=== PATIENT | female | born 1995 | race Caucasian/White ===

== ENCOUNTER 2018-08-07 17:32 | Emergency (ER) | payer MEDICAID ==
[~2018-08-07] VITALS: Ht 157.5 cm; Wt 53.6 kg
[~2018-08-07 17:32] MED LIST: ALBU8HFA PO; BECL7.3A INH; DIPH-423 PO; ONDA4TAB12 PO; PHE12.5T PO
[2018-08-07 17:52] VITALS: BP 107/48
[2018-08-07] MEDS ORDERED: DOXY100C43 PO (19:00)
[2018-08-07] MEDS ORDERED: CefTRIAXone 250MG inj IM ONE (19:00)
[2018-08-07 19:09] LABS: COLOR,URINE YELLOW (Yellow); GLUCOSE, URINE NEGATIVE (Neg); KETONES,URINE NEGATIVE (Neg); LEUKOCYTE ESTERASE ,URINE NEGATIVE (Neg); NITRITES, URINE NEGATIVE (Neg); OCCULT BLOOD,URINE NEGATIVE (Neg); PROTEIN,URINE NEGATIVE (Neg); UROBILINOGEN,URINE 0.2 E.U/dL (0.2-1.0)
[2018-08-07 19:10] LABS: URINE HCG NEGATIVE (NEG)
[2018-08-07 19:20] LABS: UA COLLECTION TYPE CLN CATCH MIDSTREAM
[2018-08-07 19:21] LABS: CLARITY,URINE SLIGHTLY CLOUDY (Clear)
[2018-08-07 19:24] LABS: BACTERIA,URINE FEW /HPF (Neg); MUCUS STRANDS NONE SEEN /LPF (Neg); RBC,URINE NONE SEEN /HPF (0-2); SQUAMOUS EPITHELIAL CELL,UR MANY /LPF (FEW); WBC,URINE 0-4 /HPF (0-4)
[2018-08-07] MEDS: CefTRIAXone 250MG IM Kit w/LIDOcaine IM ONE (19:32)
== END 2018-08-07 19:40 | disposition home or self-care (01) ==
LOC: ER 17:32
DX: J06.9 Acute upper respiratory infection, unspecified (principal); N89.8 Other specified noninflammatory disorders of vagina; Z20.2 Contact with and (suspected) exposure to infections with a predominantly sexual mode of transmission; J45.909 Unspecified asthma, uncomplicated; Z79.899 Other long term (current) drug therapy; F12.90 Cannabis use, unspecified, uncomplicated
CPT/HCPCS: 36415; 81001; 81025; 87491; 87591; 96372; 99283; J0696

== ENCOUNTER 2018-10-10 17:07 | Emergency (ER) | payer MEDICAID ==
[~2018-10-10] VITALS: Ht 157.5 cm; Wt 52.3 kg
[~2018-10-10 17:07] MED LIST changes: -PHE12.5T PO; +PROM12.512 PO
[2018-10-10 17:33] VITALS: BP 109/61
[2018-10-10 19:00] LABS: URINE HCG NEGATIVE (NEG)
[2018-10-10 19:01] LABS: CLARITY,URINE CLOUDY (Clear); COLOR,URINE YELLOW (Yellow); GLUCOSE, URINE NEGATIVE (Neg); KETONES,URINE NEGATIVE (Neg); LEUKOCYTE ESTERASE ,URINE SMALL (Neg); NITRITES, URINE NEGATIVE (Neg); OCCULT BLOOD,URINE LARGE (Neg); PROTEIN,URINE 100 mg/dl (Neg); UROBILINOGEN,URINE 0.2 E.U/dL (0.2-1.0)
[2018-10-10 19:02] LABS: UA COLLECTION TYPE CLN CATCH MIDSTREAM
[2018-10-10 19:26] LABS: BACTERIA,URINE 1+ /HPF (Neg); MUCUS STRANDS FEW /LPF (Neg); RBC,URINE 50-100 /HPF (0-2); SQUAMOUS EPITHELIAL CELL,UR FEW /LPF (FEW); WBC,URINE TNTC /HPF (0-4)
[2018-10-10] MEDS ORDERED: NITR100C6 PO (20:03)
== END 2018-10-10 20:12 | disposition home or self-care (01) ==
LOC: ER 17:08
DX: N39.0 Urinary tract infection, site not specified (principal); R31.9 Hematuria, unspecified; J45.909 Unspecified asthma, uncomplicated; F12.90 Cannabis use, unspecified, uncomplicated; F19.90 Other psychoactive substance use, unspecified, uncomplicated; Z98.890 Other specified postprocedural states; Z91.018 Allergy to other foods; Z79.899 Other long term (current) drug therapy
CPT/HCPCS: 81001; 81025; 87077; 87088; 87186; 99283

== ENCOUNTER 2020-11-03 13:30 | Emergency (ER) | payer MEDICAID ==
[~2020-11-03] VITALS: Ht 157.5 cm; Wt 58.2 kg
[~2020-11-03 13:30] MED LIST changes: +NITR100C6 PO
[2020-11-03 13:40] VITALS: BP 105/52
[2020-11-03 14:05] LABS: BASOPHILS # (AUTO) 0.1 X10'3 (0-0.2); BASOPHILS % (AUTO) 0.4 % (0-1); EOSINOPHILS % (AUTO) 0.2 % (0-6); HEMATOCRIT 34.1 % (35.0-45.0); HEMOGLOBIN 11.4 g/dl (12.0-16.0); LYMPHOCYTES # (AUTO) 1.3 X10'3 (1.1-4.8); LYMPHOCYTES % (AUTO) 8.8 % (21-51); MEAN CORPUSCULAR HEMOGLOBIN 28.4 PG (27.0-31.0); MEAN CORPUSCULAR HGB CONC 33.6 g/dL (33.0-36.5); MEAN CORPUSCULAR VOLUME 84.6 FL (78-98); MEAN PLATELET VOLUME 8.1 FL (7.4-10.4); MONOCYTES # (AUTO) 1.5 X10'3 (0-0.9); MONOCYTES % (AUTO) 10.6 % (2-12); NEUTROPHILS # (AUTO) 11.3 X10'3 (1.8-7.7); PLATELET COUNT 231 X10'3 (140-440); RED BLOOD COUNT 4.03 X10'6 (4.20-5.60); RED CELL DISTRIBUTION WIDTH 13.3 % (11.5-14.5); WHITE BLOOD COUNT 14.1 X10'3 (4.5-11.0)
[2020-11-03 14:17] LABS: ALANINE AMINOTRANSFERASE 119 U/L (12-78); ALBUMIN 3.6 G/DL (3.4-5.0); ALBUMIN/GLOBULIN RATIO 0.9 (1.1-1.5); ALKALINE PHOSPHATASE 119 IU/L (46-116); ANION GAP 9 (8-16); BILIRUBIN,TOTAL 0.6 MG/DL (0.1-1.0); BLOOD UREA NITROGEN 7 MG/DL (7-18); BUN/CREATININE RATIO 9.1 (6.6-38.0); CALCIUM 8.6 MG/DL (8.5-10.1); CHLORIDE 100 MMOL/L (99-107); CREATININE 0.77 MG/DL (0.40-0.90); GLUCOSE 131 MG/DL (70-104); SODIUM 133 MMOL/L (135-145); TOTAL CARBON DIOXIDE 23.8 MMOL/L (24-32); TOTAL PROTEIN 7.5 G/DL (6.4-8.2); eGFR > 90 ML/MIN
[2020-11-03 14:25] LABS: ASPARTATE AMINO TRANSFERASE 108 U/L (10-37)
[2020-11-03 14:25] LABS: CLARITY,URINE CLEAR (Clear); COLOR,URINE YELLOW (Yellow); GLUCOSE, URINE NEGATIVE (Neg); KETONES,URINE NEGATIVE (Neg); LEUKOCYTE ESTERASE ,URINE SMALL (Neg); NITRITES, URINE NEGATIVE (Neg); OCCULT BLOOD,URINE TRACE-INTACT (Neg); PH,URINE 6.5 (4.8-8.0); PROTEIN,URINE NEGATIVE (Neg); UROBILINOGEN,URINE 0.2 E.U/dL (0.2-1.0)
[2020-11-03 14:37] LABS: UA COLLECTION TYPE CLN CATCH MIDSTREAM
[2020-11-03 14:39] LABS: MUCUS STRANDS FEW /LPF (Neg); SQUAMOUS EPITHELIAL CELL,UR MODERATE /LPF (FEW)
[2020-11-03 14:41] LABS: BACTERIA,URINE 1+ /HPF (Neg); RBC,URINE 0-2 /HPF (0-2)
[2020-11-03 14:42] LABS: TRANSITIONAL EPI CELLS,URINE FEW /HPF
[2020-11-03] MEDS ORDERED: CEPH-585 PO (19:55)
== END 2020-11-03 15:30 | disposition left against medical advice (07) ==
LOC: ER 13:31
DX: N39.0 Urinary tract infection, site not specified (principal); Z20.822 Contact with and (suspected) exposure to COVID-19; R05 Cough; R06.02 Shortness of breath; R50.9 Fever, unspecified; R42 Dizziness and giddiness; J45.909 Unspecified asthma, uncomplicated; F17.210 Nicotine dependence, cigarettes, uncomplicated; F12.90 Cannabis use, unspecified, uncomplicated; F15.90 Other stimulant use, unspecified, uncomplicated; F11.90 Opioid use, unspecified, uncomplicated; Z98.890 Other specified postprocedural states; Z72.89 Other problems related to lifestyle; Z88.8 Allergy status to other drugs, medicaments and biological substances; Z79.899 Other long term (current) drug therapy
CPT/HCPCS: 36415; 80053; 81001; 85025; 87077; 87088; 87186; 87635; 99283; C9803

== ENCOUNTER 2023-09-29 00:44 | Inpatient (IN) | payer MEDICAID ==
[~2023-09-29] VITALS: Ht 160 cm; Wt 74.2 kg
[~2023-09-29 00:44] MED LIST changes: +ONDA-243 PO; -ONDA4TAB12 PO
[2023-09-29] MEDS: normal saline 1000ml 1,000 ML IV ONE ×2 (00:50→05:00)
[2023-09-29 01:15] LABS: HEMOGLOBIN 11.6 g/dl (12.0-16.0); MEAN PLATELET VOLUME 7.9 FL (7.4-10.4); RED BLOOD COUNT 4.11 X10'6 (4.20-5.60); WHITE BLOOD COUNT 1.9 X10'3 (4.5-11.0)
[2023-09-29 01:16] LABS: BASOPHILS % (AUTO) 0.2 % (0-1); EOSINOPHILS % (AUTO) 1.9 % (0-6); HEMATOCRIT 34.3 % (35.0-45.0); LYMPHOCYTES # (AUTO) 0.4 X10'3 (1.1-4.8); LYMPHOCYTES % (AUTO) 22.7 % (21-51); MEAN CORPUSCULAR HEMOGLOBIN 28.2 PG (27.0-31.0); MEAN CORPUSCULAR HGB CONC 33.7 g/dL (33.0-36.5); MEAN CORPUSCULAR VOLUME 83.6 FL (78-98); MONOCYTES # (AUTO) 0.3 X10'3 (0-0.9); MONOCYTES % (AUTO) 17.9 % (2-12); NEUTROPHILS # (AUTO) 1.1 X10'3 (1.8-7.7); NEUTROPHILS % (AUTO) 57.3 % (42-75); PLATELET COUNT 139 X10'3 (140-440); RED CELL DISTRIBUTION WIDTH 13.5 % (11.5-14.5)
[2023-09-29 01:30] LABS: ALANINE AMINOTRANSFERASE 747 U/L (12-78); ALBUMIN 3.8 G/DL (3.4-5.0); ALBUMIN/GLOBULIN RATIO 0.9 (1.1-1.5); ALKALINE PHOSPHATASE 397 IU/L (46-116); ANION GAP 13 (8-16); ASPARTATE AMINO TRANSFERASE 598 U/L (10-37); BILIRUBIN,TOTAL 3.1 MG/DL (0.1-1.0); BLOOD UREA NITROGEN 12 MG/DL (7-18); CALCIUM 9.3 MG/DL (8.5-10.1); CHLORIDE 98 MMOL/L (99-107); CREATININE 0.75 MG/DL (0.40-0.90); GLUCOSE 106 MG/DL (70-104); LIPASE 11 U/L (16-77); POTASSIUM 3.9 MMOL/L (3.5-5.1); SODIUM 137 MMOL/L (135-145); TOTAL CARBON DIOXIDE 26.4 MMOL/L (24-32); TOTAL PROTEIN 7.9 G/DL (6.4-8.2); eCRCL 94 ML/MIN; eGFR > 90 ML/MIN
[2023-09-29 01:31] LABS: BILIRUBIN,URINE MODERATE (Neg); CLARITY,URINE CLOUDY (Clear); COLOR,URINE YELLOW (Yellow); GLUCOSE, URINE 100 mg/dl (Neg); KETONES,URINE 15 mg/dl (Neg); LEUKOCYTE ESTERASE ,URINE NEGATIVE (Neg); NITRITES, URINE NEGATIVE (Neg); OCCULT BLOOD,URINE NEGATIVE (Neg); PH,URINE 8.5 (4.8-8.0); PROTEIN,URINE 30 mg/dl (Neg); UROBILINOGEN,URINE >=8.0 E.U/dL (0.2-1.0)
[2023-09-29 01:33] LABS: URINE HCG NEGATIVE (NEG)
[2023-09-29 01:36] LABS: UA COLLECTION TYPE VOIDED
[2023-09-29] MEDS ORDERED: iohexol 300mg/ml 100ml inj. ONE (01:36)
[2023-09-29 01:37] LABS: MUCUS STRANDS FEW /LPF (Neg); SQUAMOUS EPITHELIAL CELL,UR MODERATE /LPF (FEW)
[2023-09-29 01:38] LABS: BACTERIA,URINE 1+ /HPF (Neg); RBC,URINE 0-2 /HPF (0-2); TRANSITIONAL EPI CELLS,URINE FEW /HPF
[2023-09-29] MEDS: buprenorphine/naloxone 8MG-2MG SUBlingual film SL SCH (01:43)
[2023-09-29] MEDS: ondansetron/PF 4mg/2ml inj IV ONE (01:43)
[2023-09-29] MEDS: haloperidol lactate 5mg/ml inj IVH ONE (01:43)
[2023-09-29 02:18] LABS: PLATELET ESTIMATE DECREASED; TOTAL CELLS COUNTED 100
[2023-09-29] MEDS ORDERED: morphine 2 MG/ML inj. syringe IV PRN ×2 (04:00)
[2023-09-29] MEDS ORDERED: potassium Cl 40MEQ/1/2NS 520ml 520 ML IV PRN (04:00)
[2023-09-29] MEDS ORDERED: magnesium sulf-water 2g/50mL 50 ML IV PRN (04:00)
[2023-09-29] MEDS ORDERED: acetaminophen 325mg tablet PO PRN (04:00)
[2023-09-29] MEDS ORDERED: potassium Cl 20 mEq SR tablet PO PRN ×2 (04:00)
[2023-09-29] MEDS ORDERED: magnesium sulf-water 4G/100mL 100 ML IV PRN (04:00)
[2023-09-29] MEDS ORDERED: ondansetron/PF 4mg/2ml inj IV PRN (04:00)
[2023-09-29] MEDS ORDERED: magnesium Cl slow-release 64mg tablet PO PRN (04:00)
[2023-09-29] MEDS ORDERED: magnesium hydroxide 30ml (MOM) UD suspension PO PRN (04:00)
[2023-09-29] MEDS ORDERED: mag hydrox/Alum hydrox/simeth 30ml oral suspension PO PRN (04:00)
[2023-09-29 04:12] LABS: URINE AMPHETAMINE SCREEN NEGATIVE (Neg); URINE BARBITUATE SCREEN NEGATIVE (Neg); URINE BENZODIAZEPINES SCREEN NEGATIVE (Neg); URINE CANNABINOID SCREEN POSITIVE (Neg); URINE COCAINE SCREEN NEGATIVE (Neg); URINE METHADONE SCREEN NEGATIVE (Neg); URINE OPIATE SCREEN NEGATIVE (Neg); URINE PHENCYCLIDINE SCREEN NEGATIVE (Neg)
[2023-09-29 05:19] VITALS: TEMP 98.3
[2023-09-29] MEDS ORDERED: ARIP5TAB31 PO (05:40)
[2023-09-29] MEDS ORDERED: BUSP5TAB3 PO (05:40)
[2023-09-29] MEDS ORDERED: piperacillin/tazo 3.375gm/50ml 50 ML IV SCH ×2 (05:45→08:00)
[2023-09-29] MEDS: normal saline 1000ml 1,000 ML IV SCH (06:09)
[2023-09-29] MEDS: pantoprazole 40mg Tablet.DR PO SCH (06:10)
[2023-09-29] MEDS: piperacillin/tazo 3.375gm/50ml 50 ML IV ONE (06:10)
[2023-09-29] MEDS: docusate sod 100mg capsule PO SCH (07:28)
[2023-09-29] MEDS ORDERED: pantoprazole 40mg Tablet.DR PO SCH (07:30)
[2023-09-29 07:53] LABS: MAGNESIUM 1.8 MG/DL (1.5-2.4); POTASSIUM 3.5 MMOL/L (3.5-5.1)
[2023-09-29 08:00] LABS: APTT 31 SECONDS (22-32); INR 1.2 INR; PROTHROMBIN TIME 12.7 SECONDS (9.0-12.0)
[2023-09-29] MEDS: K and/or MAG REPLACEMENT MC SCH (08:00)
[2023-09-29] MEDS ORDERED: buprenorphine/naloxone 8MG-2MG SUBlingual film SL SCH (08:00)
[2023-09-29] MEDS: enoxaparin 30mg/0.3ml syringe SUBCUT SCH (08:00)
[2023-09-29] MEDS: morphine 2 MG/ML inj. syringe IV ONE (08:23)
[2023-09-29 09:27] LABS: HIV ANTIBODY 1&2 RAPID NON-REACTIVE (Neg)
[2023-09-29] MEDS: NORMAL SALINE IV ONE (11:00)
[2023-09-29] MEDS: SINCALIDE IV ONE (11:00)
[2023-09-29] MEDS: piperacillin/tazo 3.375gm/50ml 50 ML IV SCH (11:04)
[2023-09-29 12:34] VITALS: BP 104/50; PULSE 48; RESP 16; O2SAT 99
== END 2023-09-29 12:30 | disposition left against medical advice (07) ==
LOC: ER 00:44 → ED HOLD 04:12
PROVIDERS: ADMIT Internal Medicine; ATTEND Internal Medicine
PROC: BW211ZZ Computerized Tomography (CT Scan) of Abdomen and Pelvis using Low Osmolar Contrast (ICD-10-PCS; principal; 2023-09-29)
DX: K81.0 Acute cholecystitis (principal); D61.818 Other pancytopenia; B19.20 Unspecified viral hepatitis C without hepatic coma; J45.909 Unspecified asthma, uncomplicated; N39.0 Urinary tract infection, site not specified; F17.210 Nicotine dependence, cigarettes, uncomplicated; F12.10 Cannabis abuse, uncomplicated; F11.10 Opioid abuse, uncomplicated; Z53.29 Procedure and treatment not carried out because of patient's decision for other reasons; R74.01 Elevation of levels of liver transaminase levels; Z88.8 Allergy status to other drugs, medicaments and biological substances; Z91.018 Allergy to other foods
CPT/HCPCS: 36415; 74177; 76700; 80053; 80305; 81001; 81025; 83605; 83690; 83735; 84132; 85007; 85025; 85610; 85730; 86703; 86705; 86709; 86803; 86885; 86900; 86901; 87040; 87088; 87340; 87522; 93005; 96374; 99285; G0378; J1630; J2270; J2405; J2543; J7030; Q9967

== ENCOUNTER 2025-02-04 00:47 | Emergency (ER) | payer MEDICAID ==
[~2025-02-04] VITALS: Ht 157.5 cm; Wt 57.7 kg
[~2025-02-04 00:47] MED LIST changes: +ARIP5TAB53 PO; +BUSP5TAB3 PO
[2025-02-04] MEDS: CefTRIAXone/D5W-Rocephin 1gm 50 ML IV ONE (01:37)
[2025-02-04] MEDS: normal saline 1000ML IV soln IVB ONE (01:38)
--- NOTE | 2025-02-04 01:38 | Physician Documentation ---
History of Present Illness ~ Chief Complaint: Urinary Symptoms Stated Complaint: ABD PAIN Time Seen by MD: 01:31 Primary Medical Doctor: [facility] HPI Patient presents to the emergency room for evaluation of fever, dysuria and back pain. Onset of symptoms yesterday. Distant history of urinary tract infections. Patient endorses there urine smells terrible. Medication Reconciliation Allergies: Coded Allergies: peach (Unverified Allergy, Unknown, 02/04/25) Scheduled Aripiprazole (Aripiprazole), 1 TAB PO DAILY, (Reported) Beclomethasone Dipropionate (Qvar 40 MCG INHALER), 2 PUFFS INH BID Buspirone Hcl* (Buspar*), 1 TAB PO TID, (Reported) Diphenhydramine Hcl (Benadryl), 25 MG PO TID Nitrofurantoin Monohyd/M-Cryst (Macrobid 100 mg Capsule), 1 CAP PO Q12H Scheduled PRN ONDANSETRON ODT 4mg tablet (Ondansetron Odt), 1 TABLET PO Q6H PRN for nausea/vomiting Promethazine Hcl (Phenergan), 1 TABLET PO Q6H PRN for NAUSEA albuterol inhaler (Pro-Air Inhaler), 1-2 PUFFS PO Q4H PRN for SOB or wheezing Past Medical History Past Medical History: Asthma Past Surgical History: orthopedic surgeries Alcohol Use: Occasionally Drug Use: marijuana, methamphetamine, heroin Lives with: Father Lives In: Home Occupation: student Review of Systems ROS All review of systems negative except as per HPI Physical Exam Vital Signs: Temperature: 100.2, Source: Oral, Heart Rate: 10, Respiratory Rate: 12, BP: 111/52, Pulse Oximetry: 98, Weight: 57.700 Physical Exam General: Patient is awake, alert, oriented x4 in no acute distress Head: Normocephalic and atraumatic. Eyes: Conjunctival normal. EOMI. PERRL. ENT: Mucous membranes moist. Neck: Supple, trachea is midline. Chest: Clear to auscultation bilaterally without rales, rhonchi, or wheezes. There is no accessory muscle use or retractions. Cardiac: Tachycardic and regular without murmurs, gallops, or rubs. Abd: Soft, nondistended, nontender, with normoactive bowel sounds. No guarding, rebound, or rigidity. Extremities: Normal strength. Normal range of motion. No deformities or edema. Back: Mild right-sided CVA tenderness to palpation Progress Results/Orders Results/Orders Orders - CESAR FLYNN MD Culture Blood (02/04/25 01:32) Covid19 Binax Poc Result Entry (02/04/25 02:10) Ua W/Microscopic, Cult If Ind (02/04/25 03:12) Completed Orders - CESAR FLYNN MD Cbc/Diff (02/04/25 01:32) MG (02/04/25 01:32) Hcg, Ur Ql (02/04/25 01:32) Procalcitonin (02/04/25 01:32) BMP (02/04/25 01:32) Lacticsepsis (02/04/25 01:32) Ceftriaxone/[id number] 1gm (Rocephin 1 (02/04/25 01:35) Normal Saline 1000ml (0.9% Sodium Chlori (02/04/25 01:35) Drug Screen, Urine (02/04/25 01:32) Acetaminophen 1,000mg/100ml Iv (Ofirmev (02/04/25 01:35) Influenza Type A&B Rapid Test (02/04/25 02:10) Medications Received in ER Medications (Trade) Dose Ordered Sig/Kayode Route PRN Reason Start Time Stop Time Status Last Admin Dose Admin Ceftriaxone Sodium 50 ml @ 100 mls/hr ONCE ONCE IV 02/04/25 01:35 02/04/25 02:04 DC 02/04/25 01:37 100 MLS/HR (0.9% sodium chloride (NS) 1000ml IV soln) 2,000 ml ONCE ONCE IVB 02/04/25 01:35 02/04/25 01:36 DC 02/04/25 01:38 2,000 ML Acetaminophen 100 ml @ 400 mls/hr ONCE ONCE IV 02/04/25 01:35 02/04/25 01:49 DC 02/04/25 01:42 400 MLS/HR Vital Signs 02/04/25 02/04/25 02/04/25 01:09 02:04 02:04 Temp 100.2 100.2 Pulse 10 92 Resp 12 16 B/P (MAP) 111/52 102/57 (72) Pulse Ox 98 98 Laboratory Tests Test 02/04/25 01:25 02/04/25 02:16 02/04/25 03:12 White Blood Count 9.9 Red Blood Count 3.91 L Hemoglobin 11.4 L Hematocrit 32.9 L Mean Corpuscular Volume 84.0 Mean Corpuscular Hemoglobin 29.2 Mean Corpuscular Hemoglobin Concent 34.7 Red Cell Distribution Width 14.1 Platelet Count 179 Mean Platelet Volume 7.4 Neutrophils (%) (Auto) 71.4 Lymphocytes (%) (Auto) 14.6 L Monocytes (%) (Auto) 13.5 H Eosinophils (%) (Auto) 0.2 Basophils (%) (Auto) 0.3 Neutrophils # (Auto) 7.1 Lymphocytes # (Auto) 1.4 Monocytes # (Auto) 1.3 H Eosinophils # (Auto) 0.0 Basophils # (Auto) 0.0 CBC Comment Sodium Level 133 L Potassium Level 4.2 Chloride Level 96 L Carbon Dioxide Level 30.2 Anion Gap 7 L Blood Urea Nitrogen 12 Creatinine 0.74 Estimated GFR/1.73 m2 > 90 BUN/Creatinine Ratio 16.2 Glucose Level 117 H Lactic Acid Level 0.9 Calcium Level 8.6 Magnesium Level 1.7 Albumin 3.4 Procalcitonin 0.05 Chemistry Comments Influenza Type A Antigen Negative Influenza Type B Antigen Negative SARS-CoV-2 Antigen (Rapid) Negative Urine Specimen Description Cln catch midstream Urine Color Yellow Urine Clarity Slightly cloudy Urine pH 6.5 Urine Specific [place] 1.010 Urine Protein Negative Urine Glucose (UA) Negative Urine Ketones Negative Urine Occult Blood Small Urine Nitrite Positive H Urine Bilirubin Negative Urine Urobilinogen 0.2 Urine Leukocyte Esterase Trace H Volume Urine Centrifuged 10 ml Urine HCG, Qualitative Negative Urine Comment Urine Opiates Screen Positive Urine Methadone Screen Negative Urine Fentanyl Screen Positive H Urine Barbiturates Screen Negative Urine Phencyclidine Screen Negative Urine Amphetamines Screen Positive Urine Benzodiazepines Screen Negative Urine Cocaine Screen Negative Urine Cannabinoids Screen Negative Drug Screen Comment Medical Decision Making Additional information obtaine: old records Findings Patient presents to the emergency room with fever and back pain. Differentials include but are not limited to urinary tract infection, pyelonephritis, sepsis, viral syndrome, intra-abdominal infection therefore emergent labs ordered. Labs positive for urinary tract infection and given patient's back pain I believe she is suffering from pyelonephritis. Patient does demonstrate a fever over labs are otherwise reassuring she is nontoxic appearing. I believe she will do well on outpatient basis Urinary Diff Dx:Considerations: Include: AAA, , Aortic dissection, Appendicitis, Bowel obstruction, Cholelithiasis, Choleangitis, DJD, Ectopic , Hepatitis, HNP, Impaction, Intrauterine , Musculoskeletal pain, Ovarian torsion, Pancreatitis, PID, Post-Op complication, Pyelonephritis, Renal failure, Strain, Urinary Obstruction, Urolithiasis, Urinary retention, UTI, Vaginitis, Other Genital Diff Dx:Considerations: Include: -Complete, - Incomplete, -Inevitable, Ablortion-Missed, -Threatened, Abruptio placentae, Bartholin abscess, Bartholin cyst, Blood loss anemia, Constipation, Cervicitis, Dsymenorrhea, Ectopic , Foreign body, Hormonal, Hidradenitis suppurativa, Intrauterine , Menorrhagia, Menometrorrhagia, Menstrual bleeding, Myomatous uterus, Perianal abscess, Physiologic discharge, Pinworms, PID, Placenta previa, , Precipitous Hct, Trauma, UTI, Vagini tis(osis)-Atrophic, Vaginitis, Vaginitis(osis)-Bacterial, Vaginitis(osis)- Candidal, Vaginitis(osis)-Contact, Vaginitis(osis)-Herpes, Vaginitis(osis)- Trich., Other Departure Disposition: HOME / SELF CARE / HOMELESS Impression: Primary Impression: Acute pyelonephritis Condition: Stable Discharge Instructions: Pyelonephritis, Adult Referrals: NO PRIMARY CARE PROVIDER (PCP) Prescriptions Ciprofloxacin HCl (Ciprofloxacin HCl) 500 Mg Tab 1 TAB PO Q12H for 10 Days, #20 TAB Prov: CESAR FLYNN MD 02/04/25 Signature Scribe Signature: No scribe Attestation: The note accurately reflects work and decisions made by me.Cesar Flynn MD 02/04/25 03:39 CESAR FLYNN MD Feb 04, 2025 01:38
[2025-02-04] MEDS: acetaminophen 1,000mg/100ml IV 100 ML IV ONE (01:42)
[2025-02-04 01:59] LABS: CREATININE 0.74 MG/DL (0.40-0.90); TOTAL CARBON DIOXIDE 30.2 MMOL/L (24-32); eCRCL 90 ML/MIN; eGFR > 90 ML/MIN
[2025-02-04 02:04] VITALS: BP 102/57; PULSE 92; RESP 16; TEMP 100.2; O2SAT 98
[2025-02-04 02:05] LABS: MEAN PLATELET VOLUME 7.4 FL (7.4-10.4); RED CELL DISTRIBUTION WIDTH 14.1 % (11.5-14.5)
[2025-02-04 03:04] LABS: INFLUENZA TYPE A ANTIGEN RAPID NEGATIVE (Negative); INFLUENZA TYPE B ANTIGEN RAPID NEGATIVE (Negative)
[2025-02-04 03:22] LABS: URINE HCG NEGATIVE (NEG)
[2025-02-04 03:31] LABS: LEUKOCYTE ESTERASE ,URINE TRACE (Neg); NITRITES, URINE POSITIVE (Neg); OCCULT BLOOD,URINE SMALL (Neg); URINE AMPHETAMINE SCREEN POSITIVE (Neg); URINE BARBITUATE SCREEN NEGATIVE (Neg); URINE BENZODIAZEPINES SCREEN NEGATIVE (Neg); URINE CANNABINOID SCREEN NEGATIVE (Neg); URINE COCAINE SCREEN NEGATIVE (Neg); URINE METHADONE SCREEN NEGATIVE (Neg); URINE OPIATE SCREEN POSITIVE (Neg); URINE PHENCYCLIDINE SCREEN NEGATIVE (Neg)
[2025-02-04 03:34] LABS: UA COLLECTION TYPE CLN CATCH MIDSTREAM
[2025-02-04] MEDS ORDERED: CIPR-458 PO (03:39)
[2025-02-04 03:44] LABS: MUCUS STRANDS FEW /LPF (Neg); SQUAMOUS EPITHELIAL CELL,UR MODERATE /LPF (FEW)
== END 2025-02-04 03:48 | disposition home or self-care (01) ==
LOC: ER 00:48
DX: N10 Acute pyelonephritis (principal); M54.9 Dorsalgia, unspecified; R50.9 Fever, unspecified; R30.0 Dysuria; J45.909 Unspecified asthma, uncomplicated; F12.90 Cannabis use, unspecified, uncomplicated; F15.90 Other stimulant use, unspecified, uncomplicated; F11.90 Opioid use, unspecified, uncomplicated; Z20.822 Contact with and (suspected) exposure to COVID-19; Z88.8 Allergy status to other drugs, medicaments and biological substances; Z79.899 Other long term (current) drug therapy
CPT/HCPCS: 36415; 80048; 80305; 81001; 81025; 83605; 83735; 84145; 85025; 87040; 87077; 87088; 87186; 87804; 87811; 96365; 96368; 99284; J0131; J0696; J7030

== ENCOUNTER 2025-02-18 14:22 | Emergency (ER) | payer MEDICAID ==
[2025-02-18 14:35] VITALS: TEMP 96.3
--- NOTE | 2025-02-18 14:39 | Physician Documentation ---
History of Present Illness ~ Chief Complaint: Vomiting Stated Complaint: VOMITING Time Seen by MD: 14:48 Primary Medical Doctor: [facility] This is a 29-year-old female who reports that she smoked meth today, and shortly thereafter developed nausea, vomiting, abdominal pain, chills. Pain is generalized, perhaps worse in left lower quadrant. She denies fevers. Medication Reconciliation Allergies: Coded Allergies: peach (Unverified Allergy, Unknown, 02/04/25) Scheduled Aripiprazole (Aripiprazole), 1 TAB PO DAILY, (Reported) Beclomethasone Dipropionate (Qvar 40 MCG INHALER), 2 PUFFS INH BID Buspirone Hcl* (Buspar*), 1 TAB PO TID, (Reported) Diphenhydramine Hcl (Benadryl), 25 MG PO TID Naloxone HCl (Narcan), 1 SPRAYS BOTHNARES ONCE Nitrofurantoin Monohyd/M-Cryst (Macrobid 100 mg Capsule), 1 CAP PO Q12H Scheduled PRN ONDANSETRON ODT 4mg tablet (Ondansetron Odt), 1 TABLET PO Q6H PRN for nausea/vomiting Ondansetron 8mg ODT (Ondansetron Odt), 1 TAB PO TID PRN for nausea/vomiting Promethazine Hcl (Phenergan), 1 TABLET PO Q6H PRN for NAUSEA albuterol inhaler (Pro-Air Inhaler), 1-2 PUFFS PO Q4H PRN for SOB or wheezing Discontinued Medications Ciprofloxacin HCl (Ciprofloxacin HCl), 1 TAB PO Q12H Discontinued Reason: Auto Discontinued Past Medical History Past Medical History: Asthma Past Surgical History: orthopedic surgeries Alcohol Use: Occasionally Drug Use: marijuana, methamphetamine, heroin Lives with: Father Lives In: Home Occupation: student Review of Systems ROS As stated above in the HPI, otherwise all systems are reviewed and negative. Physical Exam Vital Signs: Temperature: 96.3, Source: Temporal, Heart Rate: 80, Respiratory Rate: 15, BP: 96/58, Pulse Oximetry: 98 Physical Exam General: Sleepy, opens eyes to voice. HEENT: PERRL, EOMI, no injection, moist mucous membranes. Neck: Full range of motion. Respiratory: Lungs clear, no respiratory distress. Chest: No accessory muscle use. Cardiovascular: Regular rate and rhythm, no murmurs. Gastrointestinal: Soft, mildly TTP LLQ, nondistended. Bowels sounds present. Extremities: Normal range of motion, no deformity. Neurologic: Oriented x4. Psychiatric: Normal mood and affect. Skin: Normal color, warm and dry. No edema, no ecchymosis. Progress Results/Orders Results/Orders Completed Orders - VIVIAN KINGSTON NP Prochlorperazine Inj (Compazine Inj) (02/18/25 14:50) Diphenhydramine Inj (Benadryl Inj.) (02/18/25 14:50) Drug Screen, Urine (02/18/25 14:48) Medications Received in ER Medications (Trade) Dose Ordered Sig/Kayode Route PRN Reason Start Time Stop Time Status Last Admin Dose Admin (Compazine inj) 10 mg ONCE ONCE IM 02/18/25 14:50 02/18/25 14:51 DC 02/18/25 14:58 10 MG (Benadryl inj.) 25 mg ONCE ONCE IM 02/18/25 14:50 02/18/25 14:51 DC 02/18/25 14:58 25 MG Vital Signs 02/18/25 02/18/25 02/18/25 14:35 15:21 16:39 Temp 96.3 Pulse 80 82 Resp 15 16 16 B/P (MAP) 96/58 96/59 (71) Pulse Ox 98 95 O2 Flow Rate 0 Laboratory Tests Test 02/18/25 14:37 02/18/25 14:48 02/18/25 16:44 White Blood Count 12.2 H Red Blood Count 4.48 Hemoglobin 12.8 Hematocrit 37.6 Mean Corpuscular Volume 83.9 Mean Corpuscular Hemoglobin 28.5 Mean Corpuscular Hemoglobin Concent 34.0 Red Cell Distribution Width 14.0 Platelet Count 314 Mean Platelet Volume 7.1 L Neutrophils (%) (Auto) 88.8 H Lymphocytes (%) (Auto) 5.7 L Monocytes (%) (Auto) 4.8 Eosinophils (%) (Auto) 0.5 Basophils (%) (Auto) 0.2 Neutrophils # (Auto) 10.8 H Lymphocytes # (Auto) 0.7 L Monocytes # (Auto) 0.6 Eosinophils # (Auto) 0.1 Basophils # (Auto) 0.0 CBC Comment Sodium Level 139 Potassium Level 4.1 Chloride Level 102 Carbon Dioxide Level 29.1 Anion Gap 8 Blood Urea Nitrogen 15 Creatinine 0.54 Estimated GFR/1.73 m2 > 90 BUN/Creatinine Ratio 27.8 H Glucose Level 109 H Calcium Level 9.0 Total Bilirubin 0.4 Aspartate Amino Transf (AST/SGOT) 25 Alanine Aminotransferase (ALT/SGPT) 36 Alkaline Phosphatase 109 Total Protein 8.4 H Albumin 4.1 Globulin 4.3 Albumin/Globulin Ratio 1.0 L Lipase 14 L Chemistry Comments Urine Specimen Description Non-specified Urine Color Yellow Urine Clarity Slightly cloudy Urine pH 6.0 Urine Specific [place] 1.025 Urine Protein Negative Urine Glucose (UA) Negative Urine Ketones Trace H Urine Occult Blood Negative Urine Nitrite Negative Urine Bilirubin Negative Urine Urobilinogen 0.2 Urine Leukocyte Esterase Negative Urine RBC None seen Urine WBC 0-4 Urine Squamous Epithelial Cells Moderate Urine Bacteria Few Urine Mucus Few Urine Culture Indicated Not ind Volume Urine Centrifuged 10 ml Urine HCG, Qualitative Negative Urine Comment Urine Opiates Screen Negative Urine Methadone Screen Negative Urine Fentanyl Screen Positive H Urine Barbiturates Screen Negative Urine Phencyclidine Screen Negative Urine Amphetamines Screen Positive Urine Benzodiazepines Screen Negative Urine Cocaine Screen Negative Urine Cannabinoids Screen Positive Drug Screen Comment Medical Decision Making Additional information obtaine: old records Findings 02/05/24 patient was seen here for acute pyelonephritis Diff Dx GI Bleed:Consideration: Include: Other Diff Dx Pain:Considerations: Include: Other Diff Dx N/V/D:Considerations: Include: Other Diff Dx Rectal:Considerations: Include: Other Additional Comments Most Likely Diagnoses: Cannabinoid hyperemesis syndrome (CHS): The combination of nausea, vomiting, and abdominal pain in a patient with marijuana-positive urine drug screen is highly suggestive of CHS, particularly given the dramatic symptomatic improvement with antiemetics. CHS is characterized by cyclic vomiting, nausea, and abdominal pain in patients with chronic cannabis use (typically more than 1 year of use, frequency more than 4 times per week). The mean age of presentation is 30 years, and the condition affects both men and women. The response to prochlorperazine (a dopamine antagonist acting on the chemoreceptor trigger zone) supports this diagnosis. While hot-water bathing behavior is commonly considered an indicator of CHS and was reported in 71% of patients in a systematic review, its absence does not exclude the diagnosis. Opioid-induced nausea and vomiting from fentanyl: The temporal relationship between smoking fentanyl and symptom onset strongly suggests opioid-induced naus ea and emesis. The primary mechanism is central, with direct stimulation of the chemoreceptor trigger zone in the area postrema in the floor of the fourth ventricle. Peripheral inhibitory effects on gastrointestinal transit and stimulation of the pyloric sphincter can delay gastric emptying and contribute to symptoms. The clinical efficacy of dopamine antagonists like prochlorperazine for opioid-induced emesis supports this diagnosis, as adding a prokinetic or dopamine antagonist to the opiate regimen is beneficial. Methamphetamine-induced gastritis or gastropathy: Methamphetamine use can cause acute gastric injury through direct mucosal toxicity, vasoconstriction leading to ischemia, and increased gastric acid secretion. The positive methamphetamine screen combined with abdominal pain and nausea suggests drug-induced gastric injury. The response to antiemetics indicates symptomatic relief rather than resolution of underlying mucosal damage. Polydrug toxicity syndrome: The combination of fentanyl, methamphetamine, and marijuana creates a complex pharmacologic picture with overlapping gastrointestinal effects. Methamphetamine is a sympathomimetic that can cause vasoconstriction and delayed gastric emptying, fentanyl directly induces nausea through central mechanisms, and chronic cannabis use predisposes to CHS. The synergistic effects of these substances may produce more severe symptoms than any single agent alone. Viral gastroenteritis: Acute gastroenteritis uniformly presents as a syndrome of rapid onset of nausea, emesis, cramping abdominal pain, and diarrheal stools. While malaise is common, fever is observed less often. However, the temporal relationship with substance use and the dramatic response to antiemetics make this less likely than drug-related etiologies. The absence of diarrhea (not mentioned in the presentation) also makes viral gastroenteritis less probable. Most Important Not to Miss Diagnoses: Ectopic : Rule out with serum ?-hCG immediately and transvaginal ultrasound. Any woman of reproductive age (27 years old) presenting with abdominal pain and nausea requires testing to exclude ectopic pregnan cy, which can rupture and cause life-threatening hemorrhage. The substance use history does not exclude , and ectopic can present with nonspecific gastrointestinal symptoms. If ?-hCG is positive, urgent pelvic ultrasound is mandatory to determine location. A discriminatory ?-hCG threshold of 1,500-2,000 mIU/mL is used to determine when an intrauterine p regnancy should be visible on transvaginal ultrasound. Negative urine preg. Acute pancreatitis: Rule out with serum lipase and/or amylase levels (greater than 3 times the upper limit of normal supports diagnosis). Abdominal pain is the most common presenting symptom of acute pancreatitis, usually described as constant and often with radiation to the back that may be exacerbated by eating or drinking. Accompanying symptoms include nausea, vomiting, and low- to moderate-grade fever. While substance-induced pancreatitis is less common, methamphetamine and other drugs of abuse have been associated with acute pa ncreatitis. Physical examination should assess for abdominal distention, decreased bowel sounds, and epigastric tenderness. If lipase/amylase are elevated, obtain comprehensive metabolic panel, liver function tests, and triglyceride levels to identify underlying etiology. Negative lipase noted. Mesenteric ischemia from methamphetamine-induced vasospasm: Rule out with careful assessment for peritoneal signs, serum lactate level, and CT angiography of the abdomen and pelvis with IV contrast if clinical suspicion is high. Methamphetamine is a potent sympathomimetic that causes intense vasoconstriction and can precipitate mesenteric ischemia, particularly in chronic users or with high doses. Classic presentation includes severe abdominal pain out of proportion to physical examination findings, though early ischemia may present with milder symptoms. Elevated lactate, metabolic acidosis, and leukocytosis suggest advanced ischemia. CT angiography is the diagnostic test of choice and can identify arterial occlusion, venous thrombosis, or bowel wall thickening/pneumatosis indicating infarction. No fever, and abdominal pain resolved once vomiting was ceased with use of compazine/diphenhydramine. Perforated viscus from drug-induced ulceration: Rule out with careful abdominal examination assessing for peritoneal signs (rigidity, rebound tenderness, guarding) and upright chest radiography or CT abdomen/pelvis to detect free air. While less common, methamphetamine and other stimulants can cause acute gastric or intestinal ulceration that may perforate. The absence of fever does not exclude perforation. Any patient with severe abdominal pain and substance use should be evaluated for this surgical emergency.No fever, and abdominal pain resolved once vomiting was ceased with use of compazine/diphenhydramine. Bowel obstruction: Rule out with abdominal examination, abdominal radiography (supine and upright), and CT abdomen/pelvis if indicated. Opioids like fentanyl can cause severe constipation and ileus, potentially leading to obstruction. Assess for abdominal distention, high-pitched bowel sounds or absence of bowel sounds, and obstipation. Plain radiographs showing dilated bowel loops with air- fluid levels suggest obstruction. abdominal pain resolved once vomiting was ceased with use of compazine/diphenhydramine. Departure Time of Disposition: 17:37 Disposition: 01 HOME / SELF CARE / HOMELESS Impression: Primary Impression: Substance abuse Additional Impression: Nausea & vomiting Discharge Instructions: Nausea and Vomiting, Adult, Opioid Use Disorder Additional Instructions: Urine drug screen was positive for meth, fentanyl, marijuana. You are being sent with Narcan. Please keep this around due to your fentanyl use. Make others around you aware that you may be rescued with this if you have difficulty breathing due to fentanyl use. Please consider getting help with your addictio n. [facility] and [facility] both offer resources. Urine test was negative. You have no evidence of urinary tract infection. Your labs were normal. Please return if worse. Referrals: NO PRIMARY CARE PROVIDER (PCP) Prescriptions Ondansetron 8mg ODT (Ondansetron Odt) 8 Mg Tab.rapdis 1 TAB PO TID PRN for nausea/vomiting, #10 TAB Prov: VIVIAN KINGSTON NP 02/18/25 Naloxone HCl (Narcan) 4 Mg/Actuation [place] 1 SPRAYS BOTHNARES ONCE for 14 Days, #2 EA 0 Refills Prov: VIVIAN KINGSTON NP 02/18/25 Education Educated: Patient, Family Educated regarding: diagnosis, treatment, prognosis, need for follow up Signature Scribe Signature: x Attestation: The note accurately reflects work and decisions made by me.Vivian Guevara NP 02/18/25 14:39 VIVIAN KINGSTON NP Feb 18, 2025 14:39
[2025-02-18 15:07] LABS: MEAN PLATELET VOLUME 7.1 FL (7.4-10.4); RED CELL DISTRIBUTION WIDTH 14.0 % (11.5-14.5)
[2025-02-18 15:29] LABS: CREATININE 0.54 MG/DL (0.40-0.90); TOTAL CARBON DIOXIDE 29.1 MMOL/L (24-32); eGFR > 90 ML/MIN
[2025-02-18 17:02] LABS: URINE HCG NEGATIVE (NEG)
[2025-02-18 17:09] LABS: LEUKOCYTE ESTERASE ,URINE NEGATIVE (Neg); NITRITES, URINE NEGATIVE (Neg); OCCULT BLOOD,URINE NEGATIVE (Neg)
[2025-02-18 17:11] LABS: UA COLLECTION TYPE NON-SPECIFIED
[2025-02-18 17:15] LABS: SQUAMOUS EPITHELIAL CELL,UR MODERATE /LPF (FEW)
[2025-02-18 17:16] LABS: MUCUS STRANDS FEW /LPF (Neg)
[2025-02-18 17:18] LABS: URINE AMPHETAMINE SCREEN POSITIVE (Neg); URINE BARBITUATE SCREEN NEGATIVE (Neg); URINE BENZODIAZEPINES SCREEN NEGATIVE (Neg); URINE CANNABINOID SCREEN POSITIVE (Neg); URINE COCAINE SCREEN NEGATIVE (Neg); URINE METHADONE SCREEN NEGATIVE (Neg); URINE OPIATE SCREEN NEGATIVE (Neg); URINE PHENCYCLIDINE SCREEN NEGATIVE (Neg)
[2025-02-18] MEDS ORDERED: ONDA-245 PO (17:37)
[2025-02-18] MEDS ORDERED: NALO4SPR BOTHNARES (17:37)
[2025-02-18 17:50] VITALS: BP 114/72; PULSE 85; RESP 16; O2SAT 96
== END 2025-02-18 17:54 | disposition home or self-care (01) ==
LOC: ER 14:23
DX: F19.10 Other psychoactive substance abuse, uncomplicated (principal); R11.2 Nausea with vomiting, unspecified; F17.200 Nicotine dependence, unspecified, uncomplicated; F12.90 Cannabis use, unspecified, uncomplicated; F11.90 Opioid use, unspecified, uncomplicated; F15.90 Other stimulant use, unspecified, uncomplicated; J45.909 Unspecified asthma, uncomplicated; Z79.899 Other long term (current) drug therapy; Z72.89 Other problems related to lifestyle; Z98.890 Other specified postprocedural states
CPT/HCPCS: 36415; 80053; 80305; 81001; 81025; 83690; 85025; 96372; 99284; J0780; J1200